=== PATIENT | female | born 1980 | race Caucasian/White ===

== ENCOUNTER → 2017-04-30 | Outpatient (CLI) | payer OTHER | LOC: FIMAGING 09:43 | PROVIDERS: ATTEND Obstetrics & Gynecology | DX: O09.522 Supervision of elderly multigravida, second trimester (principal); O34.219 Maternal care for unspecified type scar from previous cesarean delivery; Z3A.20 20 weeks gestation of pregnancy ==

== ENCOUNTER 2017-09-20 06:00 | Inpatient (IN) | payer OTHER ==
[2017-09-23] MEDS ORDERED: EPSOM SALT 454 GM TP PRN (07:42)
[2017-09-23] MEDS ORDERED: OLIVE OIL 118 ML BTL MISC PRN (07:42)
[2017-09-23] MEDS ORDERED: OXYTOCIN 20 UNIT in LR 1,000 ML IV PRN (07:42)
[2017-09-23] MEDS ORDERED: LR 1,000 ML IV PRN (07:42)
[2017-09-23] MEDS ORDERED: TERBUTALINE SULFATE 1 MG/ML VIAL IV PRN (07:42)
[2017-09-23] MEDS ORDERED: OXYTOCIN 30 UNIT in NS 500 ML IV SCH (07:45)
--- NOTE | 2017-09-23 07:48 | OBPROG ---
Labor Progress Note Assessment/Plan: Assessment:cat 1 fhr exam 75/-2 cephalic soft discussed pitocin per protocol telemetry/ continuous monitoring pitocin per protocol anesthesia and dr blum aware are in house Plan:pitocin per protocol, arom when able 09/23/17 07:46 Subjective/Intrapartum Course: 09/23/17 07:44 Doing well denies difficulties. Prefers telemetry and moving around - SVE Dilation (cm): 3 Effacement (%): 75 Station: -2 Membranes: Intact - Contraction Pattern Assessment Current Contraction Pattern: Irregular - FHR Assessment Kidd FHR (bpm): 125 FHR Pattern Variability: Moderate FHR Category: 1 - Physical Exam General Appearance: WD/WN, alert, no apparent distress Respiratory: chest non-tender, lungs clear, normal breath sounds Cardiac/Chest: regular rate, rhythm Abdomen: normal bowel sounds Extremities: normal range of motion, non-tender, normal inspection DTR- Lower Extremities: Knee (R): 1+, Knee (L): 1+ (no clonus) Skin: normal color, warm/dry Neuro/Psych: no motor/sensory deficits, alert, normal mood/affect, oriented x 3 Oxytocin Orders Assessment - Pre-Induction/Augmentation Assessment Gestational Age: 41 week(s) and 3 day(s) ICD10 Worksheet Patient Problems: Problems Problem Status Onset term induction Acute
[2017-09-23 08:30] LABS: PLATELET COUNT 171 10^3/uL (150-400)
--- NOTE | 2017-09-23 09:49 | OBPROG ---
Labor Progress Note Assessment/Plan: Assessment: 36 y/o @ 41 3/7 weeks TOLAC IOL favorable cervix with pitocin and AROM now with elevated BP Plan: PIH labs are wnl, and she remains asymptomatic. We will observe her BP closely and allow her to be ambulatory depending on BP values. Pitocin and AROM Prn and will give epidural prn. 09/23/17 09:46 Subjective/Intrapartum Course: 09/23/17 07:44 Doing well denies difficulties. Prefers telemetry and moving around 09/23/17 09:44 Pt is doing well feeling some tightening. She denies TAN, scotomata, RUQ pain. She has noticed increased edema today and feels tightness in her hands and feet. Objective: 09/23/17 08:20 09/23/17 09:24 Patient ABO/Rh O POSITIVE 09/23/17 08:20 Uric Acid 3.9 mg/dL (2.5-6.8) 09/23/17 09:24 Total Bilirubin 0.4 mg/dL (0.1-1.4) 09/23/17 09:24 Conjugated Bilirubin 0.1 mg/dL (0.0-0.5) 09/23/17 09:24 Unconjugated Bilirubin 0.3 mg/dL (0.0-1.1) 09/23/17 09:24 AST 19 IU/L (14-46) 09/23/17 09:24 ALT 31 IU/L (9-52) 09/23/17 09:24 Lactate Dehydrogenase 342 IU/L (313-618) 09/23/17 09:24 BP 150's/ 80-100's - SVE Dilation (cm): 3 Effacement (%): 75 Station: -1 Membranes: Intact - Contraction Pattern Assessment Current Contraction Pattern: Irregular - FHR Assessment Kidd FHR (bpm): 140 FHR Pattern Variability: Moderate FHR Category: 1 Oxytocin Orders Assessment - Pre-Induction/Augmentation Assessment Gestational Age: 41 week(s) and 3 day(s) ICD10 Worksheet Patient Problems: Problems Problem Status Onset term induction Acute
--- NOTE | 2017-09-23 09:51 | GHP ---
[f rep st] HISTORY AND PHYSICAL DATE OF ADMISSION: 09/23/2017 HISTORY OF PRESENT ILLNESS: Patient is a 36-year-old, 4, para 2, with an EDC of 09/13/2017 w ho comes in at 41 weeks for induction of labor. PAST MEDICAL HISTORY: Patient has a history of anemia, autoimmune eczema. Patient has a previous hi story of skin cancer, melanoma of the right arm. PAST SURGICAL HISTORY: A , a D and C, and a tonsillectomy. SOCIAL HISTORY: Patient is to her . Denies tobacco use. Denies drug use. ALLERGIES: Penicillin allergy. PRESENT HISTORY: AMA. Patient is 36 years old. Elevated blood pressure on admission to [facility] and Delivery for the 1st time. PREVIOUS HISTORY: History of mild PIH with the 2nd . History of low transverse c esarean section with baby #1 who was 6 pounds 13 ounces. Baby #2 was a vaginal delivery, 8 pounds 6 ounces. PHYSICAL EXAMINATION: GENERAL: Patient is awake, alert, oriented x3. LUNGS: Clear bilaterally. A BDOMEN: Bowel sounds are positive in all 4 quadrants. EXTREMITIES: DTRs are 1+ bilaterally with no clonus. Patient denied PIH symptoms. Homans sign was negative bilaterally. PELVIC: Patient was 3 , 75, -1, cephalic. LABORATORY DATA: Patient is O positive, antibody negative. RPR is nonreactive. Rubella is immune. Hepatitis is negative. HIV is negative. Trio screen is negative. TSH was within normal limits. P atient had an early 3 hour that was within normal limits. Pap gonorrhea and chlamydia were negative. AFP was negative. Innatal was negative. One-hour GTT was 129. GBS is negative. PLAN: 1. GBS negative. 2. Pitocin per protocol. AROM when able. Consult Dr. Missy Umaña on plan of care. Patient is a V CRISELDA. Anesthesia is aware and in house. /[id number]/MODL
[2017-09-23] MEDS ORDERED: OXYTOCIN 10 UNIT/ML VIAL ONE (12:32)
[2017-09-23] MEDS ORDERED: AMMONIA AROMATIC 1 EACH AMP IH ONE (12:32)
[2017-09-23] MEDS ORDERED: OLIVE OIL 118 ML BTL ONE (12:32)
[2017-09-23] MEDS ORDERED: TERBUTALINE SULFATE 1 MG/ML VIAL ONE (12:32)
[2017-09-23] MEDS ORDERED: MISOPROSTOL 200 MCG TAB ONE (12:32)
[2017-09-23] MEDS ORDERED: LIDOCAINE 1% 300 MG/30 ML SDV ONE (12:32)
--- NOTE | 2017-09-23 13:56 | OBPROG ---
Labor Progress Note Assessment/Plan: Assessment:cat 1 fhr exam 575/-1 cephalic soft pitocin at 12mu telemetry/ continuous monitoring arom trace meconium copious amounts anesthesia and dr blum aware are in house Plan:pitocin per protocol continued, expectant management, continuous monitoring 09/23/17 07:46 09/23/17 13:56 Subjective/Intrapartum Course: 09/23/17 07:44 Doing well denies difficulties. Prefers telemetry and moving around 09/23/17 09:44 Pt is doing well feeling some tightening. She denies TAN, scotomata, RUQ pain. She has noticed increased edema today and feels tightness in her hands and feet. 09/23/17 13:51 Patient states pain from a 0.5 now a 3 feeling greater pain with the contractions. Coping well with the contractions Objective: 09/23/17 08:20 09/23/17 09:24 Patient ABO/Rh O POSITIVE 09/23/17 08:20 Uric Acid 3.9 mg/dL (2.5-6.8) 09/23/17 09:24 Total Bilirubin 0.4 mg/dL (0.1-1.4) 09/23/17 09:24 Conjugated Bilirubin 0.1 mg/dL (0.0-0.5) 09/23/17 09:24 Unconjugated Bilirubin 0.3 mg/dL (0.0-1.1) 09/23/17 09:24 AST 19 IU/L (14-46) 09/23/17 09:24 ALT 31 IU/L (9-52) 09/23/17 09:24 Lactate Dehydrogenase 342 IU/L (313-618) 09/23/17 09:24 - SVE Dilation (cm): 5 Effacement (%): 75 Station: -1 Membranes: AROM Amniotic Fluid Color: Meconium Stained - Contraction Pattern Assessment Current Contraction Pattern: Regular - FHR Assessment Kidd FHR (bpm): 125 FHR Pattern Variability: Moderate FHR Category: 1 Oxytocin Orders Assessment - Pre-Induction/Augmentation Assessment Gestational Age: 41 week(s) and 3 day(s) ICD10 Worksheet Patient Problems: Problems Problem Status Onset term induction Acute
--- NOTE | 2017-09-23 17:18 | OBDEL ---
Info Type: Vaginal Presentation at Delivery: Vertex L&D Analgesia/Anesthesia Type: None GBS+: No Intrapartum Medications: Generic Name Dose Route Start Last Admin Trade Name Landy PRN Reason Stop Dose Admin Oxytocin 30 unit/ Sodium 503 mls @ 0 mls/hr 09/23/17 07:45 09/23/17 08:39 Chloride IV 03/22/18 07:44 503 mls CONT CARIN Administration Per Protocol - Hospital Course Intrapartum: 09/23/17 07:44 Doing well denies difficulties. Prefers telemetry and moving around 09/23/17 09:44 Pt is doing well feeling some tightening. She denies TAN, scotomata, RUQ pain. She has noticed increased edema today and feels tightness in her hands and feet. 09/23/17 13:51 Patient states pain from a 0.5 now a 3 feeling greater pain with the contractions. Coping well with the contractions Indications for Delivery: Postterm Favorable Cervix (MIOL, elevated BP , ) Vaginal Delivery - Delivery Provider Delivery Physician/CNM: Alayna Otto Proctoring Provider: Missy Umaña - Labor and Delivery Onset of Contractions Date: 09/23/17 Onset of Contractions Time: 08:00 Rupture of Membranes Date: 09/23/17 Rupture of Membranes Time: 13:30 Rupture of Membranes Type: Artificial Amniotic Fluid Color: Meconium Stained Dilation Complete Date: 09/23/17 Dilation Complete Time: 16:48 Placenta Delivery Date: 09/23/17 Placenta Delivery Time: 17:00 Total Hours of Labor: 9 Non-surgical Procedures: Amniotomy Vaginal Sponge Count Correct: Yes (10) Vaginal Needle Count Correct: Yes Vaginal Sweep Performed: No EBL: 250 Delivery Events: Nuchal Cord (loose nuchal x 1, not reduced) - Medications Labor Augmentation/Induction Methods Used: Pitocin Data TITO: 09/13/17 Gestational Age: 41 week(s) and 3 day(s) Kidd Delivery Date: 09/23/17 Delivery Time: 16:57 Sex of : Female Score (1 Min): 8 Score (5 Min): 9 ICD10 Worksheet Patient Problems: Problems Problem Status Onset term induction Acute
[2017-09-23] MEDS ORDERED: HYDROCODONE/APAP 5/325 TAB PO PRN (17:29)
[2017-09-23] MEDS ORDERED: SIMETHICONE 80 MG TAB CHEW PO PRN (17:29)
[2017-09-23] MEDS ORDERED: ACETAMINOPHEN 325 MG TAB PO PRN (17:29)
[2017-09-23] MEDS ORDERED: HYDROCORTISONE 0.5% CREAM TP PRN (17:29)
[2017-09-23] MEDS: IBUPROFEN 600 MG TAB PO PRN (17:56)
[2017-09-24] MEDS: IBUPROFEN 600 MG TAB PO PRN ×4 (00:09→21:14)
[2017-09-24] MEDS: DOCUSATE SODIUM 100 MG CAP PO PRN ×2 (08:48→21:14)
--- NOTE | 2017-09-24 09:35 | OBPP ---
Progress Note Assessment/Plan: Assessment: PPD 1 s/p borderline b/p upon admit - nl labs, mild edema Plan: routine care 09/24/17 09:32 Subjective/ Course: 09/24/17 09:33 Pt doing well. baby is latching good but tender and crack on left nipple. disc APNO cream. urinating fine. bld is moderate - mild cramps - ok with ibu.. noticing some more edema - but reassured b/p are just borderline and not concerning. pt denies TAN or visual changes Objective: 09/23/17 08:20 09/23/17 09:24 Patient ABO/Rh O POSITIVE 09/23/17 08:20 Uric Acid 3.9 mg/dL (2.5-6.8) 09/23/17 09:24 Total Bilirubin 0.4 mg/dL (0.1-1.4) 09/23/17 09:24 Conjugated Bilirubin 0.1 mg/dL (0.0-0.5) 09/23/17 09:24 Unconjugated Bilirubin 0.3 mg/dL (0.0-1.1) 09/23/17 09:24 AST 19 IU/L (14-46) 09/23/17 09:24 ALT 31 IU/L (9-52) 09/23/17 09:24 Lactate Dehydrogenase 342 IU/L (313-618) 09/23/17 09:24 Temp Pulse Resp BP Pulse Ox 36.7 C 79 17 122/90 H 94 09/24/17 08:00 09/24/17 08:00 09/24/17 08:00 09/24/17 08:00 09/24/17 08:00 Uterine Position/Fundal Height: Umbilicus -1 Uterine Tone: Firm Physical Exam - Physical Exam Abdomen: non-tender, soft, other (FF at umb -1) Extremities: non-tender, pedal edema (mild) Skin: normal color, warm/dry Neuro/Psych: alert, normal mood/affect
[2017-09-25 07:43] VITALS: BP 127/84; PULSE 78; RESP 99; TEMP 97.7; O2SAT 15
[2017-09-25] MEDS: DOCUSATE SODIUM 100 MG CAP PO PRN (09:13)
[2017-09-25] MEDS: IBUPROFEN 600 MG TAB PO PRN (09:13)
--- NOTE | 2017-09-25 10:19 | OBPP ---
Progress Note Assessment/Plan: Assessment: day 2 normal vaginal delivery Stable afebrile Ambulating and tolerating diet Patient is ready to discharge home Plan: 09/25/17 10:21 Patient is ready for discharge Follow-up in 4 weeks for well-woman check Ibuprofen and Colace written for pain med 09/25/17 10:23 09/25/17 10:34 Subjective/ Course: 09/24/17 09:33 Pt doing well. baby is latching good but tender and crack on left nipple. disc APNO cream. urinating fine. bld is moderate - mild cramps - ok with ibu.. noticing some more edema - but reassured b/p are just borderline and not concerning. pt denies TAN or visual changes Objective: 09/23/17 08:20 09/23/17 09:24 Patient ABO/Rh O POSITIVE 09/23/17 08:20 Uric Acid 3.9 mg/dL (2.5-6.8) 09/23/17 09:24 Total Bilirubin 0.4 mg/dL (0.1-1.4) 09/23/17 09:24 Conjugated Bilirubin 0.1 mg/dL (0.0-0.5) 09/23/17 09:24 Unconjugated Bilirubin 0.3 mg/dL (0.0-1.1) 09/23/17 09:24 AST 19 IU/L (14-46) 09/23/17 09:24 ALT 31 IU/L (9-52) 09/23/17 09:24 Lactate Dehydrogenase 342 IU/L (313-618) 09/23/17 09:24 Temp Pulse Resp BP Pulse Ox 36.5 C 78 99 H 127/84 H 15 L 09/25/17 07:35 09/25/17 07:35 09/25/17 07:35 09/25/17 07:35 09/25/17 07:35 Uterine Position/Fundal Height: Umbilicus -2 Uterine Tone: Firm Physical Exam - Physical Exam Neck: non-tender, full range of motion Respiratory: chest non-tender, lungs clear, normal breath sounds Cardiac/Chest: normal peripheral pulses, regular rate, rhythm Abdomen: normal bowel sounds, non-tender, soft Skin: normal color, warm/dry Neuro/Psych: no motor/sensory deficits, alert, normal mood/affect, oriented x 3
--- NOTE | 2017-09-25 10:38 | OBGCSDC ---
General Delivery Information - General Info : 4 Para: 3 Abortions: 1 Type: Vaginal L&D Analgesia/Anesthesia Type: None Admission Date: 09/23/17 Labs: Patient ABO/Rh O POSITIVE 09/23/17 08:20 Hct 36.9 % (38.0-47.0) L 09/23/17 08:20 - Hospital Course Intrapartum: 09/23/17 07:44 Doing well denies difficulties. Prefers telemetry and moving around 09/23/17 09:44 Pt is doing well feeling some tightening. She denies TAN, scotomata, RUQ pain. She has noticed increased edema today and feels tightness in her hands and feet. 09/23/17 13:51 Patient states pain from a 0.5 now a 3 feeling greater pain with the contractions. Coping well with the contractions : 09/24/17 09:33 Pt doing well. baby is latching good but tender and crack on left nipple. disc APNO cream. urinating fine. bld is moderate - mild cramps - ok with ibu.. noticing some more edema - but reassured b/p are just borderline and not concerning. pt denies TAN or visual changes Vaginal - Delivery Provider Delivery Physician/CNM: Alayna Otto - Diagnosis Rupture of Membranes Type: Artificial Amniotic Fluid Color: Meconium Stained Delivery Events: Nuchal Cord (loose nuchal x 1, not reduced) - Procedures Non-surgical Procedures: Amniotomy - Delivery Non-surgical Procedures: Amniotomy EBL: 250 Data TITO: 09/13/17 Gestational Age: 41 week(s) and 5 day(s) Kidd Delivery Date: 09/23/17 Delivery Time: 16:47 Sex of : Female Score (1 Min): 7 Score (5 Min): 9 Discharge Information - Discharge Information Prescriptions: Ibuprofen [Motrin (*)] 600 mg PO Q6HRS PRN #30 tab PRN Reason: post , inflammation Docusate Sodium [Colace 100 MG (*)] 100 mg PO BID PRN #30 cap PRN Reason: Constipation Condition: Good Instruction/Follow Up: Four Weeks (well woman check)
== END 2017-09-25 12:30 | disposition home or self-care (01) | DRG 775 ==
LOC: FLD 09-23 06:46 → FOB 09-23 21:15
PROVIDERS: ADMIT Advanced Practice Midwife; ATTEND Advanced Practice Midwife
PROC: 3E033VJ Introduction of Other Hormone into Peripheral Vein, Percutaneous Approach (ICD-10-PCS; principal; 2017-09-23)
PROC: 10E0XZZ Delivery of Products of Conception, External Approach (ICD-10-PCS; principal; 2017-09-23)
PROC: 10907ZC Drainage of Amniotic Fluid, Therapeutic from Products of Conception, Via Natural or Artificial Opening (ICD-10-PCS; principal; 2017-09-23)
DX: O48.0 Post-term pregnancy (principal); Z37.0 Single live birth; Z3A.41 41 weeks gestation of pregnancy; O69.82X0 Labor and delivery complicated by other cord entanglement, without compression, not applicable or unspecified
CPT/HCPCS: J3105